=== PATIENT | female | born 1980 | race Caucasian/White ===

== ENCOUNTER → 2016-10-18 | Outpatient (CLI) | payer OTHER ==
--- NOTE | 2016-10-18 17:47 | US ---
Formerly [facility] Providers, Thank you very much for allowing us to see your patient, Ana Reich. As you know, she is a 36 year old, who was asked to see us to confirm dating and for 1st trimester ultrasound. Her pr egnancy is complicated by AMA, hypothyroidism, short interconception interval, and delivery a t 34 weeks. Ana's past medical history is significant for hypothyroidism which is well controlled on Levoth yroxine 150 mcg daily. Her OB history is significant for spontaneous labor and delivery at 34 weeks in 01/2016. This is an unplanned, but desired . Ana was at the time of conceiving an d had just resumed her menses in May. She denies any cramping, leakage of fluid, or vaginal bleeding. DATING: LMP: 07/26/16 Gestational Age by Dates: 12 weeks 0 days EDC: 05/02/17 US FINDINGS: Number: 1 FHR: 178 bpm CRL: 31 mm Gestational Age: 10 weeks 0 days Yolk Sac: Present Right Adnexa: Ovary well seen Left Adnexa: No pathology, ovary suboptimal IMPRESSION: 1. Dating: Today, the CRL is NOT consistent with LMP dating. The fetus measures 10+0 weeks whic h is 2 weeks different than gestational age by LMP. Based on this discrepancy, we recommend changing the patient's EDC to 05/16/17 to reflect today's US. - CHANGE CABRERA to 05/16/17 2. Genetic Screening: The patient has had reassuring NIPT results (46 XY). Given these reassuring res ults, the patient does not an additional first trimester US. We discussed the limitations of NIPT and that only invasive testing by CVS or amniocentesis can definitively exclude aneuploidy. After our discussion, the patient does not wish to proceed with invasive testing at this time. - MS-AFP level after 15 weeks to exclude ONTD - Anatomy US at 19-20 weeks 3. History of Delivery: We discussed the option of weekly 17-OH progesterone injections to de crease the risk of recurrent . Additionally, we discussed the option of following her ce rvical length with transvaginal US every 2 weeks from 16-24 weeks to further decrease her risk of pre term delivery. If her cervical length were to be <2.5 cm, she would be offered placement of an US-ind icated cerclage to reduce her risk of recurrent delivery. - Start weekly 17-OH progesterone injections from 16-36 weeks - Start cervical length screening with transvaginal US every 2 weeks from 16-24 weeks Thank you again for sending this patient to see us today. Approximately 16 minutes of a total visit t anaid of 25 minutes were spent with this patient today in direct face to face counseling regarding natacha y's US findings and the above recommendations. If you have any questions, please do not hesitate to contact me at . Rosalba Campo MD Maternal- Medicine
--- NOTE | 2016-10-18 18:20 | US ---
OB Sonogram History: First trimester screen, advanced maternal age, maternal hypothyroidism, history of d jared, 12 weeks 0 days, EDC May 02, 2017 Comparison: November 08, 2015 Technique: Transabdominal and transvaginal scanning. Transvaginal scanning is performed to better brad luate the intrauterine contents and left maternal ovary. Findings: There is a single viable intrauterine gestation. [place]-rump length = 31 mm = 10 weeks 0 day s. heart rate = 170 beats per minute. A normal yolk sac is present. The maternal right ovary lo oks normal. No pathology is identified in the maternal left ovary which is less well visualized eithe r transabdominally or transvaginally. The amnion and chorion have not yet fused. Impression: Single viable intrauterine gestation at 10 weeks 0 days. Ultrasound CABRERA = May 16, 2017. This report should be read in conjunction with the consultation by Dr. Rosalba Campo.
== END ==
LOC: FIMAGING 14:39
PROVIDERS: ATTEND Advanced Practice Midwife
DX: O09.521 Supervision of elderly multigravida, first trimester (principal); O99.281 Endocrine, nutritional and metabolic diseases complicating pregnancy, first trimester; E03.9 Hypothyroidism, unspecified; Z87.51 Personal history of pre-term labor; Z3A.10 10 weeks gestation of pregnancy

== ENCOUNTER → 2016-11-29 | Outpatient (CLI) | payer OTHER | LOC: FIMAGING 14:44 | PROVIDERS: ATTEND Advanced Practice Midwife | DX: O09.522 Supervision of elderly multigravida, second trimester (principal); O09.212 Supervision of pregnancy with history of pre-term labor, second trimester; Z3A.16 16 weeks gestation of pregnancy ==

== ENCOUNTER → 2016-12-13 | Outpatient (CLI) | payer OTHER | LOC: FIMAGING 14:59 | PROVIDERS: ATTEND Advanced Practice Midwife | DX: O09.521 Supervision of elderly multigravida, first trimester (principal); Z87.51 Personal history of pre-term labor; Z3A.18 18 weeks gestation of pregnancy ==

== ENCOUNTER → 2016-12-27 | Outpatient (CLI) | payer OTHER | LOC: FIMAGING 14:18 | PROVIDERS: ATTEND Advanced Practice Midwife | DX: O09.892 Supervision of other high risk pregnancies, second trimester (principal); O09.522 Supervision of elderly multigravida, second trimester; Z3A.20 20 weeks gestation of pregnancy ==

== ENCOUNTER → 2017-01-10 | Outpatient (CLI) | payer OTHER | LOC: FIMAGING 12:45 | PROVIDERS: ATTEND Advanced Practice Midwife | DX: O09.522 Supervision of elderly multigravida, second trimester (principal); Z3A.22 22 weeks gestation of pregnancy ==

== ENCOUNTER → 2017-01-29 | Outpatient (CLI) | payer OTHER | LOC: FIMAGING 14:23 | PROVIDERS: ATTEND Advanced Practice Midwife | DX: O09.212 Supervision of pregnancy with history of pre-term labor, second trimester (principal); O09.522 Supervision of elderly multigravida, second trimester; Z3A.24 24 weeks gestation of pregnancy ==

== ENCOUNTER 2017-03-07 15:50 | Inpatient (IN) | payer OTHER ==
[2017-03-07] MEDS ORDERED: BETAMETHASONE IM SYRINGE IM ONE (16:21)
[2017-03-07] MEDS ORDERED: LR 1,000 ML IV SCH (16:30)
[2017-03-07] MEDS ORDERED: MAGNESIUM SULF 4 GM/WATER 100 ML IV ONE (18:25)
[2017-03-07] MEDS ORDERED: ACETAMINOPHEN 325 MG TAB PO PRN (18:27)
[2017-03-07] MEDS ORDERED: CALCIUM CARBONATE 500 MG CHEWABLE TAB PO PRN (18:27)
[2017-03-07] MEDS ORDERED: ONDANSETRON 4 MG/2 ML VIAL IVP PRN (18:28)
[2017-03-07] MEDS ORDERED: Mag Sulf 500 ML IV SCH (18:30)
--- NOTE | 2017-03-07 18:54 | GHP ---
[f rep st] PREOP HISTORY AND PHYSICAL DATE OF ADMISSION: 03/07/2017 CHIEF COMPLAINT: contractions. HISTORY OF PRESENT ILLNESS: The patient is a 36-year-old, G2, P0-1-0-1, at 30-0 /7 weeks' gestation today by a 10-week ultrasound, who presents with complaints of intermittent contractions. The patient has a significant history of a previous at 34 weeks and has been on daily 17 hydroxyprogesterone since starting at 16 weeks. She stated her contractions were noticeable this morning. She denied any loss of fluid or vaginal bleeding. She had been evaluated regularly by Perinatology with normal cervical lengths. Was seen by Dr. Stefani Sanders today and was noted to be 3 cm dilated, 90% effaced, and -2 station. She has been on Labor and Delivery for observation for approximately 2 -1/2 hours. She is mik every 5 to 10 minutes, which she states are mild -moderate. PAST MEDICAL HISTORY: Significant for hypothyroidism and herpes. PAST GYNECOLOGICAL HISTORY: No abnormal Paps. One outbreak of oral herpes. FAMILY HISTORY: Noncontributory. OBSTETRICAL HISTORY: One previous at 34 weeks' gestation. REVIEW OF SYSTEMS: Positive for contractions. Negative for loss of fluid or vaginal bleeding. PHYSICAL EXAMINATION: VITAL SIGNS: Blood pressure is 113/67, pulse is 76, respiratory rate is 18, temperature 37.1. GENERAL: She is comfortable. ABDOMEN: Gravid and nontender. CERVIX: 3, 90, and -2. heart tones are in the 150s with moderate variability, and she is mik anywhere from every 5 to 10 minutes. LABORATORY: Blood type is O negative. Antibody screen negative. Rubella immune. RPR nonreactive. Hepatitis B surface antigen negative. HIV negative. Gonorrhea and chlamydia negative. Single marker AFP is normal. She had a normal NIPT, and 1-hour glucose was 119. Group B strep was done today. ASSESSMENT AND PLAN: This is a 36-year-old, 2, para 0-1-0-1 female who is at 30-0/7 weeks' gestation by 10-week ultrasound, who is having contractions and significant history of previous . 1. well being is reassuring. 2. Group B strep is pending. 3. contractions. She has received 1 dose of steroids and will receive another one tomorrow 24 hours later. I recommended to the patient beginning magnesium for tocolysis and neuro protection. as she is under 30 weeks. Discussed with the patient, as her baby is breech today, that she would likely need a delivery if she should go into labor. The patient understands this plan and agrees to the plan of care. I did discuss with Dr. Stefani Sanders, perinatologist, the plan for beginning magnesium for neuro protection and tocolysis, which she agreed to. /[id number]/MODL MTDD
[2017-03-07] MEDS ORDERED: CALCIUM GLUC 10% 1 GM/10 ML VIAL IVP PRN (19:20)
[2017-03-07 19:39] LABS: % IMMATURE GRANULYOCYTES 1.1 % (0.0-1.1); ABSOLUTE IMMATURE GRANULOCYTES 0.16 10^3/uL (0.00-0.10); ADD DIFF? NO; ADD MORPH? NO; ADD SCAN? NO; ATYPICAL LYMPHOCYTE FLAG 0 (0-99); FRAGMENT RBC FLAG 0 (0-99); HEMATOCRIT 38.9 % (38.0-47.0); HEMOGLOBIN 13.5 g/dL (12.6-16.3); LEFT SHIFT FLG 10 (0-99); LIPEMIA HEMOLYSIS FLAG 90 (0-99); MEAN CELL HEMOGLOBIN 32.7 pg (27.9-34.1); MEAN CELL HEMOGLOBIN CONCENTR. 34.7 g/dL (32.4-36.7); MEAN CELL VOLUME 94.2 fL (81.5-99.8); MEAN PLATELET VOLUME 12.1 fL (8.7-11.7); PLATELET CLUMPS FLAG 40 (0-99); PLATELET COUNT 376 10^3/uL (150-400); RED BLOOD CELL COUNT 4.13 10^6/uL (4.18-5.33); RED CELL DISTRIBUTION WIDTH 13.5 % (11.5-15.2)
[2017-03-07] MEDS ORDERED: AMMONIA AROMATIC 1 EACH AMP IH ONE (22:05)
[2017-03-07] MEDS ORDERED: LIDOCAINE 1% 300 MG/30 ML SDV ONE (22:05)
[2017-03-07] MEDS ORDERED: TERBUTALINE SULFATE 1 MG/ML VIAL ONE (22:05)
[2017-03-07] MEDS ORDERED: OXYTOCIN 10 UNIT/ML VIAL ONE (22:06)
[2017-03-07] MEDS ORDERED: MISOPROSTOL 200 MCG TAB ONE (22:06)
[2017-03-07] MEDS ORDERED: OXYTOCIN/RINGERS LACTATE 20 UNIT/1,000 ML BAG IV ONE (22:07)
[2017-03-07] MEDS ORDERED: NS 100 ML BAG (MINI-BAG) IV ONE (22:09)
[2017-03-07] MEDS ORDERED: AMPICILLIN SODIUM 2 GM/10 ML VIAL ONE (22:09)
--- NOTE | 2017-03-07 22:17 | OBPROG ---
OBG Progress Note Assessment/Plan: Assessment: 36 yo @ 30 0/7, labor Plan: 03/07/17 22:15 FWB reassuring. GBS pending, on ampicillin for prophylaxis. Declines pain medication. Anticipate delivery. Subjective: 36 yo @ 30 0/7, labor-uncomfortable with contractions. Objective: 03/07/17 16:30 Patient ABO/Rh O NEGATIVE 03/07/17 16:30 VSS - SVE Dilation (cm): 5 Effacement (%): 100 Station: -2 Current Contraction Pattern: Regular FHR (bpm): 140 FHR Pattern Variability: Moderate FHR Category: 2 ICD10 Worksheet Patient Problems: Problems Problem Status Onset contractions Acute
[2017-03-07] MEDS ORDERED: AMPICILLIN SODIUM 2 GM in NS 100 ML IV ONE (22:24)
[2017-03-07] MEDS ORDERED: OLIVE OIL 118 ML BTL ONE (22:41)
[2017-03-08] MEDS ORDERED: HYDROCORTISONE 0.5% CREAM TP PRN (02:18)
[2017-03-08] MEDS ORDERED: SIMETHICONE 80 MG TAB CHEW PO PRN (02:18)
[2017-03-08] MEDS ORDERED: HYDROCODONE/APAP 5/325 TAB PO PRN (02:18)
--- NOTE | 2017-03-08 02:18 | OBPROC ---
- Labor and Delivery Onset of Contractions Date: 03/07/17 Onset of Contractions Time: 08:00 Onset of Contractions Type: Spontaneous Rupture of Membranes Date: 03/08/17 Rupture of Membranes Time: 02:00 Rupture of Membranes Type: Artificial Amniotic Fluid Color: Clear Dilation Complete Time: 02:00 Delivery Type: Spontaneous Placenta Delivery Date: 03/08/17 EBL: 200 ml Complications: None - Medications Labor Augmentation/Induction Meds Used: None - Info A Delivery Time: 02:05 Sex of Infant: Male
[2017-03-08] MEDS ORDERED: AMPICILLIN SODIUM 1 GM in NS 100 ML IV SCH (02:30)
[2017-03-08] MEDS: IBUPROFEN 600 MG TAB PO PRN ×4 (02:54→20:19)
[2017-03-08] MEDS: DOCUSATE SODIUM 100 MG CAP PO PRN ×2 (08:28→20:19)
[2017-03-08] MEDS ORDERED: EPSOM SALT 454 GM TP PRN (08:56)
[2017-03-08] MEDS ORDERED: BETAMETHASONE IM SYRINGE IM ONE (16:21)
[2017-03-08 20:46] VITALS: RESP 16; O2SAT 97
[2017-03-09] MEDS: IBUPROFEN 600 MG TAB PO PRN ×3 (02:35→15:20)
[2017-03-09] MEDS: DOCUSATE SODIUM 100 MG CAP PO PRN (09:17)
[2017-03-09 11:51] VITALS: BP 109/68; PULSE 68; TEMP 98.3
--- NOTE | 2017-03-09 11:55 | OBGCSDC ---
General Delivery Information - General Info : 3 Para: 2 Delivery Physician/CNM: Nora Livingston Labs: Patient ABO/Rh O NEGATIVE 03/07/17 16:30 Hct 39.2 % (38.0-47.0) 03/09/17 05:15 Group B Strep DNA POSITIVE (NEGATIVE) H 03/07/17 18:10 Vaginal - Diagnosis IUP (Weeks): 30w1d Labor: Spontaneous Rupture of Membranes Type: Artificial Amniotic Fluid Color: Clear Repair: Other (Specify) (none) Complications: None - Operations/Procedures Delivery Type: Spontaneous Anesthesia: Other (Specify) (none) - Hospital Course Antepartum: H/o PTD (34 wks) on 17 OHP. AMA. Rh neg. Spontaneous labor. BMZ x 1. Mag for neuroprotection Intrapartum: , uncomplicated : Stable . Pumping. [place]. Rh neg, baby also Rh neg. Rx for ibuprofen and colace - Delivery EBL: 200 ml Discharge Information - Discharge Information Condition: Good Instruction/Follow Up: Six Weeks Discharge Physician/CNM: Gris Nelson Discharge Date: 03/09/17
== END 2017-03-09 18:00 | disposition home or self-care (01) | DRG 775 ==
LOC: FLD 15:50 → OBSVTOIN 03-08 02:05 → FOB 03-08 04:05
PROVIDERS: ADMIT Obstetrics & Gynecology; ATTEND Obstetrics & Gynecology
PROC: 10907ZC Drainage of Amniotic Fluid, Therapeutic from Products of Conception, Via Natural or Artificial Opening (ICD-10-PCS; principal; 2017-03-08)
PROC: 10E0XZZ Delivery of Products of Conception, External Approach (ICD-10-PCS; principal; 2017-03-08)
DX: O60.14X0 Preterm labor third trimester with preterm delivery third trimester, not applicable or unspecified (principal); O99.284 Endocrine, nutritional and metabolic diseases complicating childbirth; E03.9 Hypothyroidism, unspecified; Z3A.30 30 weeks gestation of pregnancy; Z37.0 Single live birth
CPT/HCPCS: J0290; J0610; J0702; J2590; J3105; J3475

== ENCOUNTER → 2017-03-07 | Outpatient (CLI) | payer OTHER | LOC: FIMAGING 14:55 | PROVIDERS: ATTEND Obstetrics & Gynecology | DX: O60.03 Preterm labor without delivery, third trimester (principal); Z3A.30 30 weeks gestation of pregnancy ==